=== PATIENT | female | born 1990 | race Caucasian/White ===

== ENCOUNTER → 2016-11-27 | Outpatient (CLI) | payer OTHER, MEDICAID ==
--- NOTE | 2016-11-27 17:17 | MA ---
Bilateral Diagnostic Digital Mammogram With Tomosynthesis and iCAD Indication: Palpable lump outer left breast on clinical exam. Mother diagnosed with breast cancer at the age of 34. Technique: Standard digital CC projections were obtained. Digital breast tomosynthesis was performed in the MLO projection with reconstruction at 1.0 mm slice thickness. Composite MLO views were recons tructed. This examination was processed by the iCAD computer-aided detection system. Comparison: October 2015 Breast density: Type C. Findings: CAD was reviewed. No suspicious microcalcifications, mass, or architectural distortion. Impression: Negative mammograms. BI-RADS: 0 - incomplete assessment Recommendation: Proceed with left breast ultrasound today to optimally characterize palpable lump. [facility] will send a result letter to the patient.
--- NOTE | 2016-11-28 09:20 | US ---
Left Breast Ultrasound Indication: Palpable lump outer left breast on clinical exam. Technique: The outer left breast was scanned with a high-resolution linear transducer by the sonogra pher and de. Correlation made with targeted physical exam. Comparison: Diagnostic mammograms performed the same day. Findings: A well-circumscribed wider than tall uniformly minimally echogenic fat lobule at the 4 o'c lock position 6 cm from the nipple, measuring 1.0 x 1.0 x 0.4 cm, corresponds to the palpable lump. The features are suggestive of a benign lipoma. No cyst, mass, or architectural distortion. Impressions 1. Probably benign lipoma corresponds to the palpable lump. 2. BI-RADS 3: Probably Benign Findings. Recommendation: Clinical follow up and left breast ultrasound in six months. The negative results and recommendations were discussed with the patient at time of study completion.
== END ==
LOC: FIMAGING 12:55
DX: N63 Unspecified lump in breast (principal); Z80.3 Family history of malignant neoplasm of breast
CPT/HCPCS: G0204; G0279

== ENCOUNTER → 2017-05-28 | Outpatient (CLI) | payer OTHER, MEDICAID | LOC: FIMAGING 08:55 | DX: N63 Unspecified lump in breast (principal) ==

== ENCOUNTER → 2017-12-31 | Outpatient (CLI) | payer OTHER, MEDICAID | LOC: FIMAGING 10:03 | PROVIDERS: ATTEND Obstetrics & Gynecology | DX: Z12.31 Encounter for screening mammogram for malignant neoplasm of breast (principal); Z80.3 Family history of malignant neoplasm of breast ==

== ENCOUNTER → 2019-04-20 | Outpatient (CLI) | payer OTHER | LOC: FIMAGING 06:35 ==